=== PATIENT | female | born 2000 | race African-American/Black ===

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

== ENCOUNTER 2019-04-06 13:14 | Emergency (ER) | payer OTHER ==
[~2019-04-06] VITALS: Ht 165.1 cm; Wt 67.0 kg
[2019-04-06 13:41] VITALS: BP 124/66
[2019-04-06 16:19] LABS: CLARITY URINE CLEAR (CLEAR); COLOR URINE YELLOW (YELLOW); KETONES URINE NEGATIVE (NEGATIVE); LEUKOCYTE ESTERASE URINE 1+ (NEGATIVE); NITRITE URINE NEGATIVE (NEGATIVE); OCCULT BLOOD URINE NEGATIVE (NEGATIVE); PH URINE 6.5 (4.5-8.0); PROTEIN URINE TRACE (NEGATIVE); SPECIFIC GRAVITY URINE 1.021 (1.005-1.030)
== END 2019-04-06 17:40 | disposition left against medical advice (07) ==
LOC: ER 13:14
DX: N76.0 Acute vaginitis (principal); Z98.890 Other specified postprocedural states
CPT/HCPCS: 81003; 81025; 87210; 99283